=== PATIENT | male | born 1995 | race Caucasian/White ===

== ENCOUNTER 2022-07-03 13:58 | Inpatient (IN) ==
[2022-07-03] MEDS ORDERED: SODIUM CHLORIDE 0.9% 500 ML IV STA (14:33)
[2022-07-03] MEDS ORDERED: ONDANSETRON INJ 2 MG/ML 2 ML VIAL IV STA (14:33)
[2022-07-03 15:13] LABS: Hematocrit (blood only) 44.1 % (40.1-51.0); Hemoglobin 16.2 g/dl (14.0-18.0); Mean Corpuscular Hgb Conc 36.7 g/dL (32.0-36.0); Platelet Count 256 K/uL (130-400); Red Blood Count 5.07 M/uL (4.63-6.08); White Blood Count 9.91 K/ul (4.8-10.8)
--- NOTE | 2022-07-03 15:17 | Emergency Department Note ---
History of Present Illness General Chief complaint: Abdominal Pain Stated complaint: NEED IV FLUIDS Time Seen by Provider: 07/03/22 15:14 History of Present Illness This 27-year-old male patient presents emergency department for evaluation of fever, shakiness, feeling faint, abdominal pain, diarrhea, and a sudden sense of impending doom. He was seen at [facility] today and was referred to the emergency department. He states that he developed a sudden onset of hot stabbing poker pain in his lower abdomen and loose stools every 20 min at 9 pm yesterday. The symptoms have persisted and are getting progressively worse. The fever just started prior to arrival. Has not been able to urinate other than a couple drops since 9 pm yesterday. Stools sometimes look black and tarry at times along with mucousy. Most of the stool is watery though so hard to tell. No bright red blood and no blood in his urine. Only has nausea if he tries to drink too much or if he tries to eat anything. Has not taken anything for his symptoms at home. Denies any cough, shortness of breath, chest pain, sore throat or URI symptoms. He went to [place] the of May for 1 week, but felt ok while he was in [place] and upon return. Denies recent antibiotic use, drinking from outside water sour valentín/well water, and denies known ill contacts. He tried a new [employer] tea shop just prior to the symptoms starting. No other foods that he felt could have triggered the symptoms. He takes a multivitamin, fiber supplement, Descovy, and Welbutrin on a regular basis. Home Medications Medication Instructions Recorded Confirmed Type bupropion HCl 300 mg 24 hr tablet, 300 mg PO DAILY 07/03/22 07/03/22 History extended release emtricitabine 120 mg-tenofovir 1 tab PO DAILY 07/03/22 07/03/22 History alafenamide fumarate 15 mg tablet (Descovy) multivitamin 1 tab PO DAILY 07/03/22 07/03/22 History psyllium husk 0.4 gram capsule 0 g PO QPM 07/03/22 07/03/22 History Allergies Allergy/AdvReac Type Severity Reaction Status Date / Time No Known Allergies Allergy Verified 07/03/22 15:27 Past Med/Surg History Medical History (Updated 07/04/22 @ 02:28 by Erinn Buckley PA-C) ADHD No pertinent past medical history Surgical History (Updated 07/04/22 @ 02:15 by Erinn Buckley PA-C) No pertinent past surgical history Social History Smoking Status: Never smoker Second Hand Exposure: No; Do You Dip or Chew Tobacco: No; Tobacco Cessation Education Requested by Patient: No Hx Alcohol Use: Yes Hx Substance Use: No Preferred Language: Nicaraguan Emulsion Operator Required: No Beliefs That Will Affect Care: None Current Living Situation Comment: Town house with two house mates Other Information That Helps Us Care for You: No Feels Safe at Home: Yes Safety Concerns: Feels Safe At This Time Assistive Devices: Glasses Review of Systems See HPI for pertinent positives & negatives. and A total of 10 systems reviewed and were otherwise negative Physical Exam Vital Signs Vital Signs - 24 hr 07/03/22 14:26 07/03/22 18:46 07/03/22 18:52 Temperature 39.5 C H 39.4 C H Temperature Source Temporal Artery Scan Oral Pulse Rate 156 H 133 H Pulse Rate [Right Finger] 136 H Pulse Rate from SpO2 Sensor 131 H Respiratory Rate 18 22 20 Respiratory Effort / Characteristics Non-Labored Respiratory Depth Normal Respiratory Pattern Regular Blood Pressure 117/66 Blood Pressure [Left Arm] 113/68 Blood Pressure Mean 83 Blood Pressure Mean [Left Arm] 83 Blood Pressure Position Sitting Pulse Oximetry 96 98 98 Oxygen Delivery Method Room Air Room Air Sepsis Recent Fever Within 48 Hours Yes Sepsis New/Unexplained Change in Mental Status No Sepsis Action Taken by Nursing No Action Required VITALS: Vitals are noted on the nurse's note and reviewed by myself. Temperature 39.5 C, heart rate 156, respiratory rate 18, pulse ox 96% on room air, blood pressure 117/66. GENERAL: 27-year-old male who appears ill and slightly pale, but nontoxic, well- developed well-nourished. SKIN: Capillary refill <2 sec. No tenting of the skin. HEAD: Normocephalic, atraumatic. EYES: PERRLA. EOMI. Conjunctivae without injection, sclerae without icterus. NOSE: Patent without discharge. MOUTH: Mucous membranes slightly dry. Uvula midline. Airway patent. NECK: Supple without nuchal rigidity. HEART: Regular rate and rhythm without murmurs gallops or rubs. LUNGS: Clear to auscultation bilaterally without wheezes, rales or rhonchi. No retractions or accessory muscle use. ABDOMEN: Positive bowel sounds x 4. Normal tympanic percussion. Soft, diffusely tender to palpation with maximal tenderness in the bilateral lower quadrants, without masses or organomegaly. Rios sign negative. No guarding or rebound tenderness. MUSCULOSKELETAL: No gross musculoskeletal defects. NEURO: Patient was alert and oriented to person place and time. No focal neurological deficits. Course Administered Medications Al Hydrox/Mg Hydrox/Simethicone (Aluminum/Magnesium Susp 30 Ml Udc) 30 ml PO Q6H PRN PRN Reason: Dyspepsia Stop: 08/02/22 23:12 Last Admin: 07/03/22 23:36 Dose: 30 ml Documented By: SHERRON Lactated Ringer's (Lr) 1,000 mls @ 150 mls/hr IV .Q6H40M HENRRY Stop: 08/02/22 18:59 Last Admin: 07/03/22 21:53 Dose: 150 mls/hr Documented By: Infusion: 07/03/22 20:51 Dose: 0 mls/hr Documented By: Admin: 07/03/22 19:34 Dose: 150 mls/hr Documented By: KELLY Discontinued Medications Acetaminophen (Acetaminophen 500 Mg Tab) Confirm Administered Dose 1,000 mg .ROUTE .STK-MED ONE Stop: 07/03/22 18:45 Last Admin: 07/03/22 18:47 Dose: 1,000 mg Documented By: ALESHA Sodium Chloride (Nss) 500 mls @ 999 mls/hr IV .Q31M STA Stop: 07/03/22 15:03 Last Infusion: 07/03/22 16:58 Dose: 0 mls/hr Documented By: Admin: 07/03/22 15:57 Dose: 999 mls/hr Documented By: HG Sodium Chloride (Nss) 500 mls @ 999 mls/hr IV .Q31M ONE Stop: 07/03/22 16:02 Last Infusion: 07/03/22 16:58 Dose: 0 mls/hr Documented By: Admin: 07/03/22 15:57 Dose: 999 mls/hr Documented By: ALESHA Levofloxacin/Dextrose (Levaquin/D5w) 750 mg in 150 mls @ 100 mls/hr IV NOW STA Stop: 07/03/22 20:24 Last Infusion: 07/03/22 20:51 Dose: 0 mls/hr Documented By: Admin: 07/03/22 19:34 Dose: 100 mls/hr Documented By: ES Ioversol (Ioversol 350 Mg 100ml Prefilled Syringe) 94 ml IV ONCE ONE Stop: 07/03/22 16:17 Last Admin: 07/03/22 16:17 Dose: 94 ml Documented By: TIAF Ketorolac Tromethamine (Ketorolac Tromethamine 15 Mg/Ml Vial) 10 mg IV NOW ONE Stop: 07/03/22 15:33 Last Admin: 07/03/22 15:59 Dose: 10 mg Documented By: ALESHA Ondansetron HCl (Ondansetron Inj 2 Mg/Ml 2 Ml Vial) 4 mg IV NOW STA Stop: 07/03/22 14:34 Last Admin: 07/03/22 15:57 Dose: 4 mg Documented By: ALESHA Medical Decision Making Differential Diagnosis Differential diagnosis includes hepatitis, pancreatitis, cholecystitis, cholelithiasis, appendicitis, kidney stone, pyelonephritis, UTI, gastritis, gastroenteritis, colitis, infectious diarrhea, C. diff, mesenteric adenitis, obstruction, abdominal abscess, perforation, diverticulitis, IBD, ischemic colitis, COVID, influenza, RSV, or others. Laboratory Data Attestation: I reviewed the patient's lab results. Result diagrams: 07/03/22 14:57 07/03/22 14:57 Lab Results 07/03/22 07/03/22 07/03/22 Range/Units 14:57 14:57 14:57 WBC 9.91 (4.8-10.8) K/ul RBC 5.07 (4.63-6.08) M/uL Hgb 16.2 (14.0-18.0) g/dl Hct 44.1 (40.1-51.0) % MCV 87.0 (80.0-100.0) fL MCH 32.0 (25.0-34.0) pg MCHC 36.7 H (32.0-36.0) g/dL RDW Std Deviation 38.0 (36.4-46.3) fL RDW Coeff of Vivi 12.0 (11.5-14.5) % Plt Count 256 (130-400) K/uL MPV 10.0 (9.4-12.4) fL Immature Gran % (Auto) 0.4 % Neut % (Auto) 80.6 % Lymph % (Auto) 8.0 % [place] % (Auto) 10.7 % Eos % (Auto) 0.0 % Baso % (Auto) 0.3 % Neut # (Auto) 7.99 H (1.4-6.5) K/uL Lymph # (Auto) 0.79 L (1.2-3.4) K/uL [place] # (Auto) 1.06 H (0.24-0.82) K/uL Eos # (Auto) 0.00 (0-0.50) K/uL Baso # (Auto) 0.03 (0-0.2) K/uL Immature Gran # (Auto) 0.04 H (0.00-0.02) K/uL ESR (0-15) mm/hr Sodium 130 L (136-145) mmol/L Potassium 3.9 (3.5-5.1) mmol/L Chloride 96 L (98-107) mmol/L Carbon Dioxide 23 (21-32) mmol/L Anion Gap 11 (3-11) BUN 17 (6-23) mg/dl Creatinine 1.31 (0.6-1.4) mg/dl Est Cr Clr Drug Dosing 102.1 ml/min Est GFR ( Amer) 86.5 ml/min Est GFR (Non-Af Amer) 74.6 ml/min BUN/Creatinine Ratio 13.0 (10-20) Glucose 141 H (70-99(Fasting)) mg/dl Calcium 9.3 (8.5-10.1) mg/dl Total Bilirubin 1.2 H (0.2-1.0) mg/dl Direct Bilirubin 0.2 (0-0.2) mg/dl AST 13 (13-39) U/L ALT 11 (7-52) U/L Alkaline Phosphatase 60 (34-104) U/L C-Reactive Protein (0-0.5) mg/dl Total Protein 7.7 (6.0-8.3) gm/dl Albumin 4.4 (3.4-5.0) gm/dl Globulin 3.3 (2.5-4.0) gm/dl Albumin/Globulin Ratio 1.3 (0.9-2) Lipase 5 L (11-82) U/L Urine Color Urine Appearance (Clear) Urine pH (4.5-7.5) Ur Specific [place] (1.000-1.030) Urine Protein (Negative) Urine Glucose (UA) (Negative) Urine Ketones (Negative) Urine Blood (Negative) Urine Nitrite (Negative) Urine Bilirubin (Negative) Urine Urobilinogen (Negative) Ur Leukocyte Esterase (Negative) Urine WBC (Auto) (0-5) /hpf Urine RBC (Auto) (0-4) /hpf U Hyaline Cast (Auto) (0-5) /lpf U Epithel Cells (Auto) (0-5) /lpf Urine Bacteria (Auto) (Negative) Stl C. cayetanensis PCR (NotDetected) Stool Rotavirus A PCR (NotDetected) Stl Adenov F 40/41 PCR (NotDetected) Stool Astrovirus (PCR) (NotDetected) Stool Campylobacter PCR (NotDetected) Stl C. diff Tox A/B PCR (NotDetected) Stool Cryptosporidium PCR (NotDetected) Stl E.coli Shiga Tox PCR (NotDetected) Stl Enterotoxigenic E PCR (NotDetected) Stool EPEC (PCR) (NotDetected) Stool EAEC (PCR) (NotDetected) Stl E. histolytica PCR (NotDetected) Stool Giardia Lamblia PCR (NotDetected) Stool Salmonella PCR (NotDetected) Stool Sapovirus (PCR) (NotDetected) Stl P. shigelloides PCR (NotDetected) Stl Shigella/EIEC PCR (NotDetected) St Y.enterocolitica PCR (NotDetected) Stool Vibrio (PCR) (NotDetected) Stl Vibrio cholerae PCR (NotDetected) Stl Norovirus GI/GII PCR (NotDetected) SARS-CoV-2 (PCR) (Negative) Influenza Type A (PCR) (Neg) Influenza Type B (PCR) (Neg) RSV (RT-PCR) (Neg) 07/03/22 07/03/22 07/03/22 Range/Units 14:57 14:57 15:57 WBC (4.8-10.8) K/ul RBC (4.63-6.08) M/uL Hgb (14.0-18.0) g/dl Hct (40.1-51.0) % MCV (80.0-100.0) fL MCH (25.0-34.0) pg MCHC (32.0-36.0) g/dL RDW Std Deviation (36.4-46.3) fL RDW Coeff of Vivi (11.5-14.5) % Plt Count (130-400) K/uL MPV (9.4-12.4) fL Immature Gran % (Auto) % Neut % (Auto) % Lymph % (Auto) % [place] % (Auto) % Eos % (Auto) % Baso % (Auto) % Neut # (Auto) (1.4-6.5) K/uL Lymph # (Auto) (1.2-3.4) K/uL [place] # (Auto) (0.24-0.82) K/uL Eos # (Auto) (0-0.50) K/uL Baso # (Auto) (0-0.2) K/uL Immature Gran # (Auto) (0.00-0.02) K/uL ESR 27 H (0-15) mm/hr Sodium (136-145) mmol/L Potassium (3.5-5.1) mmol/L Chloride (98-107) mmol/L Carbon Dioxide (21-32) mmol/L Anion Gap (3-11) BUN (6-23) mg/dl Creatinine (0.6-1.4) mg/dl Est Cr Clr Drug Dosing ml/min Est GFR ( Amer) ml/min Est GFR (Non-Af Amer) ml/min BUN/Creatinine Ratio (10-20) Glucose (70-99(Fasting)) mg/dl Calcium (8.5-10.1) mg/dl Total Bilirubin (0.2-1.0) mg/dl Direct Bilirubin (0-0.2) mg/dl AST (13-39) U/L ALT (7-52) U/L Alkaline Phosphatase (34-104) U/L C-Reactive Protein 18.16 H (0-0.5) mg/dl Total Protein (6.0-8.3) gm/dl Albumin (3.4-5.0) gm/dl Globulin (2.5-4.0) gm/dl Albumin/Globulin Ratio (0.9-2) Lipase (11-82) U/L Urine Color Urine Appearance (Clear) Urine pH (4.5-7.5) Ur Specific [place] (1.000-1.030) Urine Protein (Negative) Urine Glucose (UA) (Negative) Urine Ketones (Negative) Urine Blood (Negative) Urine Nitrite (Negative) Urine Bilirubin (Negative) Urine Urobilinogen (Negative) Ur Leukocyte Esterase (Negative) Urine WBC (Auto) (0-5) /hpf Urine RBC (Auto) (0-4) /hpf U Hyaline Cast (Auto) (0-5) /lpf U Epithel Cells (Auto) (0-5) /lpf Urine Bacteria (Auto) (Negative) Stl C. cayetanensis PCR (NotDetected) Stool Rotavirus A PCR (NotDetected) Stl Adenov F 40/41 PCR (NotDetected) Stool Astrovirus (PCR) (NotDetected) Stool Campylobacter PCR (NotDetected) Stl C. diff Tox A/B PCR (NotDetected) Stool Cryptosporidium PCR (NotDetected) Stl E.coli Shiga Tox PCR (NotDetected) Stl Enterotoxigenic E PCR (NotDetected) Stool EPEC (PCR) (NotDetected) Stool EAEC (PCR) (NotDetected) Stl E. histolytica PCR (NotDetected) Stool Giardia Lamblia PCR (NotDetected) Stool Salmonella PCR (NotDetected) Stool Sapovirus (PCR) (NotDetected) Stl P. shigelloides PCR (NotDetected) Stl Shigella/EIEC PCR (NotDetected) St Y.enterocolitica PCR (NotDetected) Stool Vibrio (PCR) (NotDetected) Stl Vibrio cholerae PCR (NotDetected) Stl Norovirus GI/GII PCR (NotDetected) SARS-CoV-2 (PCR) NEGATIVE (Negative) Influenza Type A (PCR) Negative (Neg) Influenza Type B (PCR) Negative (Neg) RSV (RT-PCR) Negative (Neg) 07/03/22 07/03/22 Range/Units 16:00 18:45 WBC (4.8-10.8) K/ul RBC (4.63-6.08) M/uL Hgb (14.0-18.0) g/dl Hct (40.1-51.0) % MCV (80.0-100.0) fL MCH (25.0-34.0) pg MCHC (32.0-36.0) g/dL RDW Std Deviation (36.4-46.3) fL RDW Coeff of Vivi (11.5-14.5) % Plt Count (130-400) K/uL MPV (9.4-12.4) fL Immature Gran % (Auto) % Neut % (Auto) % Lymph % (Auto) % [place] % (Auto) % Eos % (Auto) % Baso % (Auto) % Neut # (Auto) (1.4-6.5) K/uL Lymph # (Auto) (1.2-3.4) K/uL [place] # (Auto) (0.24-0.82) K/uL Eos # (Auto) (0-0.50) K/uL Baso # (Auto) (0-0.2) K/uL Immature Gran # (Auto) (0.00-0.02) K/uL ESR (0-15) mm/hr Sodium (136-145) mmol/L Potassium (3.5-5.1) mmol/L Chloride (98-107) mmol/L Carbon Dioxide (21-32) mmol/L Anion Gap (3-11) BUN (6-23) mg/dl Creatinine (0.6-1.4) mg/dl Est Cr Clr Drug Dosing ml/min Est GFR ( Amer) ml/min Est GFR (Non-Af Amer) ml/min BUN/Creatinine Ratio (10-20) Glucose (70-99(Fasting)) mg/dl Calcium (8.5-10.1) mg/dl Total Bilirubin (0.2-1.0) mg/dl Direct Bilirubin (0-0.2) mg/dl AST (13-39) U/L ALT (7-52) U/L Alkaline Phosphatase (34-104) U/L C-Reactive Protein (0-0.5) mg/dl Total Protein (6.0-8.3) gm/dl Albumin (3.4-5.0) gm/dl Globulin (2.5-4.0) gm/dl Albumin/Globulin Ratio (0.9-2) Lipase (11-82) U/L Urine Color Yellow Urine Appearance Clear (Clear) Urine pH 5.5 (4.5-7.5) Ur Specific [place] > 1.045 H (1.000-1.030) Urine Protein Trace H (Negative) Urine Glucose (UA) Negative (Negative) Urine Ketones Negative (Negative) Urine Blood Trace H (Negative) Urine Nitrite Negative (Negative) Urine Bilirubin Negative (Negative) Urine Urobilinogen Negative (Negative) Ur Leukocyte Esterase Negative (Negative) Urine WBC (Auto) 1-5 (0-5) /hpf Urine RBC (Auto) 0-4 (0-4) /hpf U Hyaline Cast (Auto) 0 (0-5) /lpf U Epithel Cells (Auto) 0-5 (0-5) /lpf Urine Bacteria (Auto) Negative (Negative) Stl C. cayetanensis PCR Not Detected (NotDetected) Stool Rotavirus A PCR Not Detected (NotDetected) Stl Adenov F 40/41 PCR Not Detected (NotDetected) Stool Astrovirus (PCR) Not Detected (NotDetected) Stool Campylobacter PCR Not Detected (NotDetected) Stl C. diff Tox A/B PCR Not Detected (NotDetected) Stool Cryptosporidium PCR Not Detected (NotDetected) Stl E.coli Shiga Tox PCR Not Detected (NotDetected) Stl Enterotoxigenic E PCR Not Detected (NotDetected) Stool EPEC (PCR) Not Detected (NotDetected) Stool EAEC (PCR) Not Detected (NotDetected) Stl E. histolytica PCR Not Detected (NotDetected) Stool Giardia Lamblia PCR Not Detected (NotDetected) Stool Salmonella PCR Not Detected (NotDetected) Stool Sapovirus (PCR) Not Detected (NotDetected) Stl P. shigelloides PCR Not Detected (NotDetected) Stl Shigella/EIEC PCR DETECTED A* (NotDetected) St Y.enterocolitica PCR Not Detected (NotDetected) Stool Vibrio (PCR) Not Detected (NotDetected) Stl Vibrio cholerae PCR Not Detected (NotDetected) Stl Norovirus GI/GII PCR Not Detected (NotDetected) SARS-CoV-2 (PCR) (Negative) Influenza Type A (PCR) (Neg) Influenza Type B (PCR) (Neg) RSV (RT-PCR) (Neg) Imaging Data Radiologist's Impression: Abdomen/Pelvis CT 07/03/22 15:32 CT abd pelvis IV con only CLINICAL HISTORY: lower abdominal pain, diarrhea TECHNIQUE: Helical axial images of the abdomen and pelvis were obtained and displayed. Automated dose lowering techniques and/or adjustment according to patient size were utilized for this exam. This exam was performed with intravenous contrast. CT DOSE: 569.15 mGy.cm FINDINGS: Lower chest: No acute abnormality Liver: Unremarkable. No focal lesions are seen. Gallbladder and biliary tree: No calcified gallstones. Normal caliber wall. No intra- or extrahepatic biliary ductal dilation. Pancreas: Unremarkable, no focal lesions. Spleen: Unremarkable. Adrenals: Unremarkable. Kidneys and ureters: Nonobstructive nephrolithiasis is seen. Bladder: Diffuse homogeneous wall thickening is seen. Reproductive organs: Unremarkable. Bowel: Thickening of the colonic wall is seen throughout the entire colon. The terminal ileum and the remainder of the small bowel are unremarkable. Lymph nodes Retroperitoneal: Subcentimeter lymph nodes are noted. Pelvic: Unremarkable. Mesenteric: Numerous mesenteric lymph nodes are seen measuring up to 9 mm in short axis. Peritoneum: No pneumoperitoneum is seen. Vessels: Unremarkable. Abdominal wall: Unremarkable. Bones: Unremarkable. IMPRESSION: Findings likely represent a infectious/inflammatory pancolitis. No evidence of perforation or abscess/fistula formation. Prominent mesenteric lymph nodes are likely reactive. ACT 112: Negative or not required by law. Electronically signed by: Pepe Alcaraz M.D. 07/03/2022 4:44 PM MDM Narrative I examined the patient. The patient is somewhat ill-appearing on exam, tachycardic, and febrile. An IV lock was placed and labs were drawn. The patient was given a total of 1.5 L of normal saline solution while in the emergency department. He was given Zofran 4 mg IV and Toradol 10 mg IV for pain and nausea. White blood cell count was not elevated, but there were increased neutrophils and monocytes. Sed rate and CRP were elevated. Sodium was low at 130, but potassium normal. Glucose elevated at 141. Total bilirubin elevated at 1.2, but direct bilirubin normal at 0.2 indicating a mostly indirect elevation of bilirubin. Other LFTs were normal. Lipase was normal. The patient was finally able to give a urine sample that showed trace protein and trace blood, but no evidence for UTI. COVID, influenza A/B, and RSV were negative. Stool bio fire was positive for Shigella, but negative for everything else. CT scan of the abdomen pelvis with IV contrast was reviewed by myself and read by radiology as above and showed findings consistent with an infectious/inflammatory pancolitis without evidence for perforation/abscess/fistula. He also had prominent mesenteric lymph nodes that were likely reactive. These findings are likely secondary to the Shigella infection. The patient continued to be ill-appearing, tachycardic and febrile while in the emergency department despite above treatment and he was given Tylenol 1000 mg p.o. Blood cultures were drawn and the patient was given levofloxacin 750 mg IV for treatment of the Shigella. I discussed with the patient that typically Shigella can be self-limited, but can cause more severe symptoms and those that are immunocompromise. I discussed possible HIV infection with the patient, but he states that he is tested regularly and is on Descovy for prophylaxis and he is not concerned for HIV at this time. I spoke with the hospitalist who agreed to admit the patient for further evaluation and treatment based on his significant symptomatology from the pancolitis and Shigella infection. Please refer to their dictation for further details. The patient's care was transferred in stable condition. Impression & Plan Shigella infection, Pancolitis, Hyponatremia, Tachycardia, Fever Discharge Plan Visit Data Chief Complaint: Abdominal Pain Stated Complaint: NEED IV FLUIDS ED Provider: Paula Abdullahi ED Midlevel Provider: Erinn Buckley. Discharge Problem: Shigella infection, Pancolitis, Hyponatremia, Tachycardia, Fever Patient Disposition: Admitted As Inpatient Discharge Instructions Interventions: ED Discharge Assessment Last Done: 07/03/22 20:51 : Fever Qualifiers: Encounter type: initial encounter
[2022-07-03 15:32] LABS: Basophils # (auto) 0.03 K/uL (0-0.2); Basophils % (auto) 0.3 %; Immature Granulocytes # (auto) 0.04 K/uL (0.00-0.02); Immature Granulocytes % (auto) 0.4 %; Lymphocytes # (auto) 0.79 K/uL (1.2-3.4); Monocytes # (auto) 1.06 K/uL (0.24-0.82); Monocytes % (auto) 10.7 %; Neutrophils # (auto) 7.99 K/uL (1.4-6.5); Neutrophils % (auto) 80.6 %
[2022-07-03] MEDS ORDERED: KETOROLAC TROMETHAMINE 15 MG/ML VIAL IV ONE (15:32)
[2022-07-03] MEDS ORDERED: SODIUM CHLORIDE 0.9% 500 ML IV ONE (15:32)
[2022-07-03 15:33] LABS: Albumin Globulin Ratio 1.3 (0.9-2); Albumin Level 4.4 gm/dl (3.4-5.0); Bilirubin,Total 1.2 mg/dl (0.2-1.0); Calcium 9.3 mg/dl (8.5-10.1); Creatinine Clr Calc Pharmacy 102.1 ml/min; Est GFR (African American) 86.5 ml/min; Est GFR (Non-African American) 74.6 ml/min; Globulin 3.3 gm/dl (2.5-4.0); Potassium 3.9 mmol/L (3.5-5.1); Total Protein 7.7 gm/dl (6.0-8.3)
[2022-07-03] MEDS ORDERED: IOVERSOL 350 MG 100mL Prefilled Syringe IV ONE (16:16)
--- NOTE | 2022-07-03 16:45 | CT Scan Report ---
CT abd pelvis IV con only CLINICAL HISTORY: lower abdominal pain, diarrhea TECHNIQUE: Helical axial images of the abdomen and pelvis were obtained and displayed. Automated dose lowering techniques and/or adjustment according to patient size were utilized for this exam. This e xam was performed with intravenous contrast. CT DOSE: 569.15 mGy.cm FINDINGS: Lower chest: No acute abnormality Liver: Unremarkable. No focal lesions are seen. Gallbladder and biliary tree: No calcified gallstones. Normal caliber wall. No intra- or extrahepatic biliary ductal dilation. Pancreas: Unremarkable, no focal lesions. Spleen: Unremarkable. Adrenals: Unremarkable. Kidneys and ureters: Nonobstructive nephrolithiasis is seen. Bladder: Diffuse homogeneous wall thickening is seen. Reproductive organs: Unremarkable. Bowel: Thickening of the colonic wall is seen throughout the entire colon. The terminal ileum and the remainder of the small bowel are unremarkable. Lymph nodes Retroperitoneal: Subcentimeter lymph nodes are noted. Pelvic: Unremarkable. Mesenteric: Numerous mesenteric lymph nodes are seen measuring up to 9 mm in short axis. Peritoneum: No pneumoperitoneum is seen. Vessels: Unremarkable. Abdominal wall: Unremarkable. Bones: Unremarkable. IMPRESSION: Findings likely represent a infectious/inflammatory pancolitis. No evidence of perforation or abscess /fistula formation. Prominent mesenteric lymph nodes are likely reactive. ACT 112: Negative or not required by law. Electronically signed by: Pepe Alcaraz M.D. 07/03/2022 4:44 PM
[2022-07-03 17:06] LABS: Influenza A virus by PCR Negative (Neg); Influenza B virus by PCR Negative (Neg); RSV by PCR Negative (Neg); SARS CoV2 RNA(COVID-19) InHosp NEGATIVE (Negative)
[2022-07-03 17:48] LABS: Adenovirus F 40/41 PCR Not Detected (NotDetected); Astrovirus PCR Not Detected (NotDetected); Campylobacter PCR Not Detected (NotDetected); Clostridium diff Toxin A/B PCR Not Detected (NotDetected); Cryptosporidium PCR Not Detected (NotDetected); Cyclospora cayetanensis PCR Not Detected (NotDetected); Entamoeba histolytica PCR Not Detected (NotDetected); Enteroaggregative E.coli(EAEC) Not Detected (NotDetected); Enteropathogenic E.coli (EPEC) Not Detected (NotDetected); Enterotoxigenic E.coli (ETEC) Not Detected (NotDetected); Giardia lamblia PCR Not Detected (NotDetected); Norovirus GI/GII PCR Not Detected (NotDetected); Plesiomonas shigelloides PCR Not Detected (NotDetected); Rotavirus A PCR Not Detected (NotDetected); Salmonella PCR Not Detected (NotDetected); Sapovirus PCR Not Detected (NotDetected); Shiga-like Toxin E.coli (STEC) Not Detected (NotDetected); Vibrio cholerae PCR Not Detected (NotDetected); Vibrio species PCR Not Detected (NotDetected); Yersinia enterocolitica PCR Not Detected (NotDetected)
[2022-07-03 17:50] LABS: Shigella/Enteroinvasive E.coli DETECTED (NotDetected)
[2022-07-03] MEDS ORDERED: ACETAMINOPHEN 500 MG TAB ONE (18:44)
[2022-07-03] MEDS ORDERED: levoFLOXacin/D5W 750 MG/150 ML BAG IV STA (18:55)
--- NOTE | 2022-07-03 18:58 | History & Physical Report ---
Date of Service July 03, 2022 Assessment & Plan (1) Shigella infection: Plan: - One day of abdominal pain, diarrhea q2 minutes, fever, fatigue. - CT A/P: - Stool biofire + shigella. - IV Levaquin 750 mg daily, blood cultures collected prior to abx. - QTc 433. - Supportive care with aggressive rehydration, Tylenol for pain/fevers, Zofran for n/v. - Encourage proper hand hygiene, recommend not engaging in sexual activity or preparing food for others until diarrhea has resolved to prevent infecting others via bacteria shedding. - Patient engages in high risk sexual behavior with male partners, currently takes Descovy daily for prevention against HIV infection. Offered patient HIV testing while he is admitted, however he declines as he has tested every 3 months while taking Descovy. (2) Tachycardia: Plan: - HR 130s, NSR, 2/2 fever/infection/dehydration. - 500 cc bolus x2 in ED, further IVF ordered, LRs 150cc/hr. (3) Hyponatremia: Plan: - Na 130, likely d/t severe dehydration/volume loss from shigella diarrhea. - Replete with IVF, encourage PO intake. Plan - Admit to med/surg. - Encourage ambulation, SCDs ordered, will defer on chemoppx given young age and overall health status. - Full Code. History of Present Illness Chief Complaint: abdominal pain, diarrhea x 1 day Primary Care Provider: [facility] Trevin Luu is a 27-year-old previously healthy male is presenting today with abdominal pain. Last evening around 9 PM patient developed burning, stabbing abdominal pain and diarrhea. His diarrhea been nonpainful and nonbloody but is very watery and occurring every 20-30 minutes. His symptoms have been persistent and progressively worse, and today he has been shaky and he spiked a fever prior to presenting to the ED. He was initially seen at [facility], but was sent here for IV fluids and further evaluation. He recently traveled to [place] 1 month ago, but has felt fine up until now. He has not had any recent antibiotics or been camping or drinking from outdoor water sources. He had boba tea from a new shop yesterday, but has had boba tea before without issue. He has not many other restaurants recently, and now remains at home sick like he is. He has one new, recent male sexual partner recently who does not have similar symptoms as far as he is aware. CT of the abdomen/pelvis shows pancolitis with reactive, enlarged mesenteric lymph nodes, no abscess or fistula formation. Stool biofire + for shigella. ESR 27, CRP 18, labs and UA otherwise unremarkable. Blood cultures collected in ED. Allergies Allergy/AdvReac Type Severity Reaction Status Date / Time No Known Allergies Allergy Verified 07/03/22 15:27 Home Medications Medication Instructions Recorded Confirmed Type bupropion HCl 300 mg 24 hr tablet, 300 mg PO DAILY 07/03/22 07/03/22 History extended release emtricitabine 120 mg-tenofovir 1 tab PO DAILY 07/03/22 07/03/22 History alafenamide fumarate 15 mg tablet (Descovy) multivitamin 1 tab PO DAILY 07/03/22 07/03/22 History psyllium husk 0.4 gram capsule 0 g PO QPM 07/03/22 07/03/22 History Past Med/Surg History Medical History (Updated 07/03/22 @ 19:34 by Lacy Mendez PA-C) ADHD No pertinent past medical history Social History Smoking Status: Never smoker Preferred Language: Thai Feels Safe at Home: Yes Review of Systems Review of Systems: Constitutional: Reports fever, chills, fatigue x1 day; no weakness, myalgias, anorexia, night sweats Eyes: No diplopia, no worsening or blurred vision ENT: normal hearing, no trouble swallowing Respiratory: No cough, sputum, dyspnea at rest or on exertion Cardiovascular: No chest pain, tightness or palpitations Abdomen: Abdominal pain with loose, watery stool x1 day; no vomiting, hematochezia, : Denies dysuria, hematuria, increased urgency/frequency, urinary retention Musculoskeletal: No joint pain, calf pain, swelling Neurologic: No weakness, numbness/tingling, or balance problems Psychiatric: No anxiety or depression Skin: No rash or itch Physical Exam Physical Exam: General: awake, alert, no apparent distress Head: Normocephalic, atraumatic ENT: PERRL, EOMI, no pharyngeal exudate, mucous membranes moist Chest: Clear to auscultation, on room air, no adventitious breath sounds Cardiac: tachycardic, no murmur, no JVD, normal peripheral pulses, good capillary refill Abdominal: mildly TTP throughout abdomen; NABS x 4 quadrants, soft, no rebound, guarding or tenderness Extremities: Normal inspection, no peripheral edema or erythema, calfs nontender to palpation Psych: Normal mood and affect Neuro: AAO x 3, strength intact bilaterally and rated 5/5, no motor deficits, speech is clear, no peripheral sensory deficits Skin: no rash or erythema Results & Data Results & Data ([facility]) Vital Signs (Past 12 Hours) Vital Signs Temp Pulse Pulse Resp BP BP Pulse Ox 07/03/22 18:46 39.4 C H 136 H 22 113/68 98 07/03/22 14:26 39.5 C H 156 H 18 117/66 96 O2 Del Method 07/03/22 18:46 Room Air 07/03/22 14:26 Room Air Laboratory Results Abnormal lab results 07/03/22 07/03/22 07/03/22 Range/Units 14:57 14:57 14:57 MCHC 36.7 H (32.0-36.0) g/dL Neut # (Auto) 7.99 H (1.4-6.5) K/uL Lymph # (Auto) 0.79 L (1.2-3.4) K/uL Yates # (Auto) 1.06 H (0.24-0.82) K/uL Immature Gran # (Auto) 0.04 H (0.00-0.02) K/uL ESR 27 H (0-15) mm/hr Sodium 130 L (136-145) mmol/L Chloride 96 L (98-107) mmol/L Glucose 141 H (70-99(Fasting)) mg/dl Total Bilirubin 1.2 H (0.2-1.0) mg/dl C-Reactive Protein (0-0.5) mg/dl Lipase 5 L (11-82) U/L Ur Specific [place] (1.000-1.030) Urine Protein (Negative) Urine Blood (Negative) Stl Shigella/EIEC PCR (NotDetected) 07/03/22 07/03/22 07/03/22 Range/Units 14:57 16:00 18:45 MCHC (32.0-36.0) g/dL Neut # (Auto) (1.4-6.5) K/uL Lymph # (Auto) (1.2-3.4) K/uL Yates # (Auto) (0.24-0.82) K/uL Immature Gran # (Auto) (0.00-0.02) K/uL ESR (0-15) mm/hr Sodium (136-145) mmol/L Chloride (98-107) mmol/L Glucose (70-99(Fasting)) mg/dl Total Bilirubin (0.2-1.0) mg/dl C-Reactive Protein 18.16 H (0-0.5) mg/dl Lipase (11-82) U/L Ur Specific [place] > 1.045 H (1.000-1.030) Urine Protein Trace H (Negative) Urine Blood Trace H (Negative) Stl Shigella/EIEC PCR DETECTED A* (NotDetected) Diagnostic Findings Abdomen/Pelvis CT 07/03/22 15:32 CT abd pelvis IV con only CLINICAL HISTORY: lower abdominal pain, diarrhea TECHNIQUE: Helical axial images of the abdomen and pelvis were obtained and displayed. Automated dose lowering techniques and/or adjustment according to patient size were utilized for this exam. This exam was performed with intravenous contrast. CT DOSE: 569.15 mGy.cm FINDINGS: Lower chest: No acute abnormality Liver: Unremarkable. No focal lesions are seen. Gallbladder and biliary tree: No calcified gallstones. Normal caliber wall. No intra- or extrahepatic biliary ductal dilation. Pancreas: Unremarkable, no focal lesions. Spleen: Unremarkable. Adrenals: Unremarkable. Kidneys and ureters: Nonobstructive nephrolithiasis is seen. Bladder: Diffuse homogeneous wall thickening is seen. Reproductive organs: Unremarkable. Bowel: Thickening of the colonic wall is seen throughout the entire colon. The terminal ileum and the remainder of the small bowel are unremarkable. Lymph nodes Retroperitoneal: Subcentimeter lymph nodes are noted. Pelvic: Unremarkable. Mesenteric: Numerous mesenteric lymph nodes are seen measuring up to 9 mm in short axis. Peritoneum: No pneumoperitoneum is seen. Vessels: Unremarkable. Abdominal wall: Unremarkable. Bones: Unremarkable. IMPRESSION: Findings likely represent a infectious/inflammatory pancolitis. No evidence of perforation or abscess/fistula formation. Prominent mesenteric lymph nodes are likely reactive. ACT 112: Negative or not required by law. Electronically signed by: Pepe Alcaraz M.D. 07/03/2022 4:44 PM ECG Additional Comments: Sinus tachycardia Incomplete right bundle branch block Borderline ECG No previous ECGs available. Code Status & VTE Plan Code Status Full Code. Supervising Physician Co-Signing Physician Notes Patient was seen and examined independently I discussed the case with Lacy Mendez PAC I reviewed pertinent past medical social family history and also the plan of care and agree with the plan of care. 27-year-old male presents with stabbing abdominal pain and diarrhea. His stool is watery and about every 20 to 30 minutes. He felt febrile and chilled at home even shaky. He communicate with [facility] who recommended he present to the ER for further attention. He has had some recent travel to [place] but felt fine between then and now with about 1 month. Patient found to have Shigella infection emergency department. Patient is somewhat was hypersexual behavior. He does not feel he had any new partners in his life. He does take Descovy as a preventative medication Emergency department he is ill-appearing he is tachycardic he is febrile he has persistent abdominal pain and frequent trips to the bathroom for diarrhea His cardiac exam is tachycardic but regular his abdomen exam is hyperactive bowel sounds he is a nonacute abdomen but is deftly uncomfortable to examination CT scan shows pancolitis Patient is here with Shigella positive testing pancolitis initially treated with levofloxacin fluid support resuscitation with IV fluids Any exceptions will be noted below PG Care Time/CCT Total # of Minutes Spent Total Time Spent with Patient: Total time spent is greater than 50% in coordination of care (as documented) at patient's floor/unit and/or counseling patient: Coding Level of Care Code 03339 Initial Inpt Care Lvl 2 Diagnoses Shigella infection A03.9 Tachycardia R00.0 Hyponatremia E87.1
[2022-07-03 19:11] LABS: Appearance Urine Clear (Clear); Bacteria Urine Automated Negative (Negative); Bilirubin Urine Negative (Negative); Blood Urine Trace (Negative); Cast Urine Automated 0 /lpf (0-5); Color Urine Yellow; Epithelial Cell Urine Auto 0-5 /lpf (0-5); Glucose Urine UA Negative (Negative); Ketones Urine Negative (Negative); Leukocyte Esterase Urine Negative (Negative); Nitrite Urine Negative (Negative); Protein Urine Trace (Negative); RBC Urine Automated 0-4 /hpf (0-4); Specific Gravity Urine > 1.045 (1.000-1.030); Urobilinogen Urine Negative (Negative); pH Urine 5.5 (4.5-7.5)
[2022-07-03] MEDS: LACTATED RINGER'S 1,000 ML IV SCH ×2 (19:34→21:53)
[2022-07-03] MEDS ORDERED: ONDANSETRON INJ 2 MG/ML 2 ML VIAL IV PRN (21:32)
[2022-07-03] MEDS ORDERED: ACETAMINOPHEN 325 MG TAB PO PRN (21:32)
[2022-07-03] MEDS ORDERED: levoFLOXacin/D5W 750 MG/150 ML BAG IV SCH (22:00)
[2022-07-03] MEDS ORDERED: ALUMINUM/MAGNESIUM SUSP 30 ML UDC PO PRN (23:13)
[2022-07-04] MEDS: LACTATED RINGER'S 1,000 ML IV SCH ×2 (04:30→11:46)
[2022-07-04 06:38] LABS: BUN Creatinine Ratio 13.4 (10-20); Calcium 8.2 mg/dl (8.5-10.1); Creatinine Clr Calc Pharmacy 112.4 ml/min; Est GFR (African American) 97.1 ml/min; Est GFR (Non-African American) 83.8 ml/min; Potassium 4.2 mmol/L (3.5-5.1)
[2022-07-04 06:39] LABS: Hematocrit (blood only) 36.7 % (40.1-51.0); Hemoglobin 13.4 g/dl (14.0-18.0); Mean Corpuscular Hemoglobin 32.6 pg (25.0-34.0); Mean Corpuscular Hgb Conc 36.5 g/dL (32.0-36.0); Mean Corpuscular Volume 89.3 fL (80.0-100.0); Mean Platelet Volume 10.3 fL (9.4-12.4); Platelet Count 157 K/uL (130-400); RDW Coefficient of Variation 11.9 % (11.5-14.5); RDW Standard Deviation 38.5 fL (36.4-46.3); Red Blood Count 4.11 M/uL (4.63-6.08); White Blood Count 6.35 K/ul (4.8-10.8)
[2022-07-04 06:41] LABS: Basophils # (auto) 0.02 K/uL (0-0.2); Basophils % (auto) 0.3 %; Immature Granulocytes # (auto) 0.02 K/uL (0.00-0.02); Immature Granulocytes % (auto) 0.3 %; Lymphocytes # (auto) 0.97 K/uL (1.2-3.4); Lymphocytes % (auto) 15.3 %; Monocytes # (auto) 0.59 K/uL (0.24-0.82); Monocytes % (auto) 9.3 %; Neutrophils # (auto) 4.75 K/uL (1.4-6.5); Neutrophils % (auto) 74.8 %; RBC Morphology Unremarkable
--- NOTE | 2022-07-04 12:37 | Discharge Summary ---
Date of Service July 04, 2022 Admission HPI Per Admitting Provider Trevin Luu is a 27-year-old previously healthy male is presenting today with abdominal pain. Last evening around 9 PM patient developed burning, stabbing abdominal pain and diarrhea. His diarrhea been nonpainful and nonbloody but is very watery and occurring every 20-30 minutes. His symptoms have been persistent and progressively worse, and today he has been shaky and he spiked a fever prior to presenting to the ED. He was initially seen at [facility], but was sent here for IV fluids and further evaluation. He recently traveled to [place] 1 month ago, but has felt fine up until now. He has not had any recent antibiotics or been camping or drinking from outdoor water sources. He had boba tea from a new shop yesterday, but has had boba tea before without issue. He has not many other restaurants recently, and now remains at home sick like he is. He has one new, recent male sexual partner recently who does not have similar symptoms as far as he is aware. CT of the abdomen/pelvis shows pancolitis with reactive, enlarged mesenteric lymph nodes, no abscess or fistula formation. Stool biofire + for shigella. ESR 27, CRP 18, labs and UA otherwise unremarkable. Blood cultures collected in ED. Principal Diagnosis 1. Infectious diarrhea secondary to shigella 2. Hyponatremia (mild) d/t hypovolemia Discharge Exam GENERAL: 27 yo Well-developed, well-nourished. NAD. LUNGS: Clear to auscultation bilaterally. No accessory muscle use. No W/R/R. CARDIOVASCULAR: Regular rate and rhythm. No M/G/R. No JVD. ABDOMEN: Soft, mild diffuse TTP and non-distended. BS normoactive x 4 quad. EXTREMITIES: No edema. Non-tender. Peripheral pulses +2/4. NEUROLOGIC: A&O x3. PSYCHIATRIC: Cooperative. Appropriate mood and affect. SKIN: Warm, dry, intact. No rashes or lesions. Discharge Data Allergies Allergy/AdvReac Type Severity Reaction Status Date / Time No Known Allergies Allergy Verified 07/03/22 15:27 Consultations 07/03/22 18:55 ED Decision to Admit Stat Ordered Studies Abdomen/Pelvis CT 07/03/22 15:32 CT abd pelvis IV con only CLINICAL HISTORY: lower abdominal pain, diarrhea TECHNIQUE: Helical axial images of the abdomen and pelvis were obtained and displayed. Automated dose lowering techniques and/or adjustment according to patient size were utilized for this exam. This exam was performed with intravenous contrast. CT DOSE: 569.15 mGy.cm FINDINGS: Lower chest: No acute abnormality Liver: Unremarkable. No focal lesions are seen. Gallbladder and biliary tree: No calcified gallstones. Normal caliber wall. No intra- or extrahepatic biliary ductal dilation. Pancreas: Unremarkable, no focal lesions. Spleen: Unremarkable. Adrenals: Unremarkable. Kidneys and ureters: Nonobstructive nephrolithiasis is seen. Bladder: Diffuse homogeneous wall thickening is seen. Reproductive organs: Unremarkable. Bowel: Thickening of the colonic wall is seen throughout the entire colon. The terminal ileum and the remainder of the small bowel are unremarkable. Lymph nodes Retroperitoneal: Subcentimeter lymph nodes are noted. Pelvic: Unremarkable. Mesenteric: Numerous mesenteric lymph nodes are seen measuring up to 9 mm in short axis. Peritoneum: No pneumoperitoneum is seen. Vessels: Unremarkable. Abdominal wall: Unremarkable. Bones: Unremarkable. IMPRESSION: Findings likely represent a infectious/inflammatory pancolitis. No evidence of perforation or abscess/fistula formation. Prominent mesenteric lymph nodes are likely reactive. ACT 112: Negative or not required by law. Electronically signed by: Pepe Alcaraz M.D. 07/03/2022 4:44 PM Hospital Course (1) Shigella infection: - Since admission has had about 12-14 diarrheal stools - CT A/P: as above - Stool biofire + shigella. - IV Levaquin 750 mg daily, blood cultures collected prior to abx. - Supportive care with aggressive rehydration, Tylenol for pain/fevers, Zofran for n/v. - Encourage proper hand hygiene, recommend not engaging in sexual activity or preparing food for others until diarrhea has resolved to prevent infecting others via bacteria shedding. - Patient engages in high risk sexual behavior with male partners, currently takes Descovy daily for prevention against HIV infection. Offered patient HIV testing while he is admitted, however he declines as he has tested every 3 months while taking Descovy. - D/c home today with 2 more doses of Levaquin. Given he is negative (reporte dly) for HIV, not a super high risk of fluoroquinolone resistance and UTD only advises course of 3 days - Avoid OTC anti-diarrheals (2) Tachycardia: - HR 130s, NSR, 2/2 fever/infection/dehydration. - 500 cc bolus x2 in ED, further IVF ordered, LRs 150cc/hr. - Improved (3) Hyponatremia: - Na 130, likely d/t severe dehydration/volume loss from shigella diarrhea. - Replete with IVF, encourage PO intake. - Continue to push oral fluids at home. Plan Patient is medically improved. Tolerating oral intake. Electrolytes acceptable. No need for continued inpatient stay, will d/c home as he is medically and hemodynamically stable. Complete course of antibiotics and remainder is supportive care. School excuse provided to remain home through Saturday. Recommend f/u with S in 1 week. Plan d/w Dr. Reyes who is in agreement. Total Time Total Time Spent Total Time Spent (In Minutes): >30 minutes Discharge Plan Discharge Items Patient Disposition: Home - Self-Care Reason For Visit: SHIGELLA INFECTION Discharge Diagnosis: infectious diarrhea Activity: Resume your previous activity Non-emergency contact: Primary Care Provider Call non-emergency contact if: you have any medication questions and your symptoms worsen Follow-up/Referrals: [facility] [Primary Care Provider] - (PLEASE CALL [facility] TO SCHEDULE A HOSPTIAL FOLLOW UP VISIT WITH 7-10 DAYS.) Diet: Regular Addtl Attending Provider Instructions: You have been diagnosed with infectious diarrhea caused by shigella. You have been treated with supportive measures including IV fluids, anti-nausea medications, antibiotics, and clear liquids. You have also been given Tylenol as needed for fever. You will be discharged home on 2 more doses of Levaquin. Your next dose is due on 07/04 at 6pm and the last dose on 07/05 at 6pm. At home, we advise rest and keeping up with your fluid intake to maintain your hydration. You can advance your diet to low residue (low fiber) as tolerated. You may continue to use Tylenol and/or Ibuprofen as needed for fever or aches. Avoid using any anti-diarrheals including Imodium, Pepto-Bismol, etc. Do not engage in any sexual activity until your symptoms have resolved to reduce risk of spreading infection to your partner. You should remain off school through Friday 07/06. A school excuse has been provided. Follow up with your healthcare provider within 1 week of discharge. If you have any questions following your discharge, call the nonemergency number listed on your discharge paperwork. In the event of a medical emergency, call 911. Pending Studies at Discharge: No Stand-Alone Forms: My [facility], Work/School Release, Smoking Cessation Medications and DC Order Prescriptions: New levofloxacin 750 mg tablet 750 mg PO DAILY 2 Days Qty: 2 0RF Continued multivitamin Tablet 1 tab PO DAILY bupropion HCl 300 mg tablet extended release 24 hr 300 mg PO DAILY psyllium husk 0.4 gram Capsule 0 g PO QPM Rx Instructions: Take 2 tabs in PM Descovy 120-15 mg Tablet 1 tab PO DAILY Rx Instructions: Unsure of strength Discharge Orders: Discharge Order (Routine); Ordered 07/04/22 Ordered By: Shaila Blackburn/Other Patient Handouts: Shigellosis Admission Data Admit Date/Time: 07/03/22 18:59 Attending Provider: Kit Reyes Admit Provider: Calixto Arellano Primary Care Provider: [facility] Other Providers: Calixto Arellano Other Interventions: Discharge Summary Assessment (RN) Last Done: 07/04/22 14:35 Supervising Physician Co-Signing Physician Notes I supervised Shaila Red PA-C on the care of this patient. I did not see this patient as he was seen by physician within last 24 hours, but we did discuss his plan. The plan is as written in her note except for any following changes/exceptions: None 27yo M who presents with Shigella food poisoning. Doing better already and able to maintain PO intake. Ready for discharge with short additional course of PO abx. Coding Level of Care Code D/C DAY MANAGEMENT >30 MINS Diagnoses Shigella infection A03.9 Tachycardia R00.0 Hyponatremia E87.1
--- NOTE | 2022-07-04 14:16 | Electrocardiogram Report ---
Test Reason : Blood Pressure : / mmHG Vent. Rate : 125 BPM Atrial Rate : 125 BPM P-R Int : 134 ms QRS Dur : 110 ms QT Int : 300 ms P-R-T Axes : 053 060 018 degrees QTc Int : 433 ms Sinus tachycardia RSR' or QR pattern in V1 suggests right ventricular conduction delay Borderline ECG No previous ECGs available Confirmed by Rosendo Aldana ([id number]) on 07/04/2022 2:16:13 PM Referred By: [facility] Confirmed By:Rosendo Aldana
[2022-07-04] MEDS ORDERED: levoFLOXacin/D5W 750 MG/150 ML BAG IV SCH (20:00)
[2022-07-04 21:58] LABS: A calco-baum cmplx NotReported Not Detected (NotDetected); Bact fragilis Not Reported Not Detected (NotDetected); C auris Not Reported Not Detected (NotDetected); Calbicans Not Reported Not Detected (NotDetected); Candida glabrata Not Reported Not Detected (NotDetected); Candida krusei Not Reported Not Detected (NotDetected); Cneoformans/gatti Not Reported Not Detected (NotDetected); Cparapsilosis Not Reported Not Detected (NotDetected); Ctropicalis Not Reported Not Detected (NotDetected); E cloacae compx Not Reported Not Detected (NotDetected); Efaecalis Not Reported Not Detected (NotDetected); Efaecium Not Reported Not Detected (NotDetected); Enterobacterales Not Reported Not Detected (NotDetected); Escherichia coli Not Reported Not Detected (NotDetected); H influenzae Not Reported Not Detected (NotDetected); K aerogenes Not Reported Not Detected (NotDetected); Koxytoca Not Reported Not Detected (NotDetected); Kpneumoniae grp Not Reported Not Detected (NotDetected); Lmonocyt Not Reported Not Detected (NotDetected); N meningitidis Not Reported Not Detected (NotDetected); P aeruginosa Not Reported Not Detected (NotDetected); Proteus spp Not Reported Not Detected (NotDetected); Salmonella spp Not Reported Not Detected (NotDetected); Smarcescens Not Reported Not Detected (NotDetected); Staph lugdunensis Not Reported Not Detected (NotDetected); Staph spp. Not Reported DETECTED (NotDetected); Staphaureus Not Reported Not Detected (NotDetected); Staphepi Not Reported DETECTED (NotDetected); Staphylococcus spp. DETECTED (NotDetected); Stenmaltophilia Not Reported Not Detected (NotDetected); Strep agal(GrpB) Not Reported Not Detected (NotDetected); Strep pneum Not Reported Not Detected (NotDetected); Strep pyog (GrpA) Not Reported Not Detected (NotDetected); Strep spp Not Reported Not Detected (NotDetected); mecAC Resistant Gene Not Detected (NotDetected)
[2022-07-04 22:22] LABS: Staphylococcus epidermidis DETECTED (NotDetected)
--- NOTE | 2022-07-04 23:11 | Communication Note ---
Date of Service: July 04, 2022 Notified that patient's blood culture resulted with one set out of two with gram positive cocci in clusters. Biofire showed Staph epidermidis. Chart reviewed. Patient admitted 07/03/22 to 07/04/22 for infectious diarrhea secondary to shigella and hyponatremia. Patient was treated with IV Levaquin and discharged home with an additional 2 doses of Levaquin. I attempted to call patient with phone number provided in chart ([phone]) to review results and to see how he is feeling but there was no answer. Patient's voicemail greeting was non-identifiable so therefore no voice mail was left. Will forward to patient's primary care team for this associated hospitalization. Resident Activity Tracking Resident Involvement: Resident Care Provided Care Provided: Adult Hospital Medicine
== END 2022-07-04 16:15 | disposition home or self-care (01) | DRG 372 ==
LOC: ED 13:58 → SUATTDRO 18:59 → 3E 18:59